=== PATIENT | female | born 1970 | race Caucasian/White ===

== ENCOUNTER 2016-10-08 00:46 | Emergency (ER) | payer OTHER ==
[~2016-10-08] VITALS: Ht 170.2 cm; Wt 81.6 kg
[2016-10-08 00:55] VITALS: BP 136/57; PULSE 77; RESP 23; TEMP 97.2; O2SAT 99
[2016-10-08] MEDS ORDERED: OXYMETAZOLINE HCL 0.05% NASAL SPRAY NS ONE (01:15)
[2016-10-08] MEDS ORDERED: predniSONE 1 MG TABLET PO ONE (02:00)
[2016-10-08] MEDS ORDERED: PREDNISONE 20 MG TABLET ONE (02:14)
[2016-10-08 02:15] VITALS: BP 124/67; PULSE 72; RESP 18; TEMP 97.8; O2SAT 100
== END 2016-10-08 02:15 | disposition home or self-care (01) ==
LOC: SED 00:46
DX: J32.8 Other chronic sinusitis (principal)
CPT/HCPCS: 99283; J7512